=== PATIENT | female | born 1965 | race African-American/Black ===

== ENCOUNTER 2017-05-08 05:36 | Day surgery (SDC) | payer OTHER ==
[2017-05-08] VITALS (15 sets, daily range): BP systolic 110–150; BP diastolic 72–93
[~2017-05-08] VITALS: Ht 167.6 cm; Wt 94.3 kg
[2017-05-08] MEDS ORDERED: oxyCONTIN 20mg tab ORAL ONE (06:00)
[2017-05-08] MEDS ORDERED: Clindamycin 600mg/D5W 50ml Pre-Mix IV ONE (06:00)
[2017-05-08] MEDS ORDERED: celeBREX 200mg Cap **SURGERY PATIENTS ONLY ORAL ONE (06:00)
[2017-05-08] MEDS ORDERED: ZOLOFT25 MG ORAL (06:23)
[2017-05-08] MEDS ORDERED: METFORMIN HCL500 M4 ORAL (06:23)
[2017-05-08] MEDS ORDERED: ZOLOFT50 MG ORAL (06:23)
[2017-05-08] MEDS ORDERED: LATUDA80 MG PO (06:23)
[2017-05-08] MEDS ORDERED: OMEPRAZOLE20 M3 ORAL (06:23)
[2017-05-08] MEDS ORDERED: HYDROCHLOROTH12.5 M2 ORAL (06:23)
[2017-05-08] MEDS ORDERED: VENTOLIN HFA18 GM INH (06:55)
[2017-05-08] MEDS ORDERED: Bupivacaine w/Epi 0.25% 30ml Vial INJ ONE ×2 (07:09→07:45)
[2017-05-08] MEDS ORDERED: EPINEPHrine 1mg/1ml Amp ONE (07:10)
[2017-05-08] MEDS ORDERED: Bupivacaine 0.25% Inj 30ml INJ ONE (07:28)
[2017-05-08] MEDS ORDERED: Ropivacaine 5mg/ml Vial 20ml INJ ONE (07:28)
[2017-05-08] MEDS ORDERED: Clindamycin 6 ML ONE (07:28)
--- NOTE | 2017-05-08 07:58 | Pre-Procedure Note/Attestation ---
Pre-Procedure Note/Attestation Complete Prior to Procedure Planned Procedure: right Procedure Narrative: shoulder arthroscopy, removal of loose implant Indications for Procedure Pre-Operative Diagnosis: right rct, failed biceps tenodesis Attestation I attest that I discussed the nature of the procedure; its benefits; risks and complications; and alternatives (and the risks and benefits of such alternatives ), prior to the procedure, with the patient (or the patient's legal hr representative). I attest that, if there was a reasonable possibility of needing a blood transfusion, the patient (or the patient's legal hr representative) was given the [facility] standardized written summary, pursuant to the [place] Blood Safety Act ([place] Health and Safety Code # 1645, as amended). I attest that I re-evaluated the patient just prior to the surgery and that there has been no change in the patient's H&P, except as documented below: CLAUDINE LYNNE May 08, 2017 07:58
--- NOTE | 2017-05-08 07:59 | Operative Note - PDOC ---
Operative Note Operative Note Pre-op Diagnosis: right rct, failed biceps tenodesis Procedure: right arthroscopy, removal of loose screw Post-op Diagnosis: same as pre-op plus Operative Findings: consistent w/pre-op dx studies Anesthesia: general Specimen: none Complications: none Condition: stable Estimated Blood Loss: none Implant(s) used?: No CLAUDINE LYNNE May 08, 2017 07:59
[2017-05-08] MEDS ORDERED: Norco 5mg/325mg tab ORAL PRN (08:00)
[2017-05-08] MEDS ORDERED: HYDROmorphone 1mg/ml Carpuject SUBQ PRN (08:00)
[2017-05-08] MEDS ORDERED: Tylenol #3 tab (300mg/30mg) ORAL PRN (08:00)
[2017-05-08] MEDS ORDERED: Acetaminophen (Non formulary) 100 ML IV SCH (08:00)
--- NOTE | 2017-05-08 08:47 | Anethesia Preoperative Eval ---
Anesthesia Pre-op PMH/ROS General Date of Evaluation: May 08, 2017 Time of Evaluation: 07:30 Anesthesiologist: sheryl ASA Score: ASA 2 Mallampati Score Class I : Soft palate, uvula, fauces, pillars visible Class II: Soft palate, uvula, fauces visible Class III: Soft palate, base of uvula visible Class IV: Only hard plate visible Mallampati Classification: Class III Surgeon: modesto Diagnosis: right shoulder OA Anesthesia History: none Family History: no anesthesia problems Allergies: Coded Allergies: AMOXICILLIN (Verified Allergy, Severe, blisters, rash, swelling, 05/08/17) ERYTHROMYCIN BASE (Verified Allergy, Severe, swelling, rash, blisters, 05/08) PENICILLINS (Verified Allergy, Severe, swelling, rash, blister, 05/08/17) LATEX (Verified Allergy, Intermediate, itching, rash, 05/08/17) Medications: see eMAR Past Medical History Cardiovascular: Reports: HTN Pulmonary: Reports: asthma Gastrointestinal/Genitourinary: Denies: GERD, CRI, ESRD, other Neurologic/Psychiatric: Reports: depression/anxiety Endocrine: Reports: DM, steroids HEENT: Denies: cataract (L), cataract (R), glaucoma, HOOPA (L), HOOPA (R), other Hematology/Immune: Denies: anemia, DVT, bleeding disorder, other Musculoskeletal/Integumentary: Denies: OA, RA, DJD, DDD, edema, other Other: obesity PSxH Narrative: right shoulder surgery Anesthesia Pre-op Phys. Exam Physician Exam Last Vital Signs Date Time Temp Pulse Resp B/P (MAP) Pulse Ox O2 Delivery O2 Flow Rate FiO2 05/08/17 06:28 98.0 78 19 150/89 100 Room Air Constitutional: NAD Neurologic: CN 2-12 intact Cardiovascular: RRR Respiratory: CTA Gastrointestinal: S/NT/ND Airway Exam Mallampati Classification 3 Mallampati Score: Class III Neck: thick TMD: 1fb ROM: full Teeth: broken - lower Dentures: no upper, no lower Anesthesia Pre-op A/P Labs Urine Test Test 05/08/17 05:50 Urine HCG, Qualitative Negative Studies Pre-op Studies: EKG - sr Risk Assessment & Plan Assessment: asthmatic pt. lungs clear, albuterol prior to induction Plan: General with block; however, pt refuses a ISB prior to induction Status Change Before Surgery: No Pre-Antibiotics Drug: clindamycin Given Within 1 Hr of Incision: Yes Time Given: 08:50 HONORIO BARBA CRNA May 08, 2017 08:47
[2017-05-08] MEDS ORDERED: Propofol 200mg/20ml IV ONE (09:00)
[2017-05-08] MEDS ORDERED: Metoclopramide 10mg/2ml Inj ONE (09:00)
[2017-05-08] MEDS ORDERED: Zemuron 50mg/5ml Inj IV ONE (09:00)
[2017-05-08] MEDS ORDERED: Midazolam 2mg/2ml Inj ONE (09:00)
[2017-05-08] MEDS ORDERED: D5 1/2NS 1,000 ML IV SCH (09:00)
[2017-05-08] MEDS ORDERED: Dexamethasone 4mg/ml vial ONE (09:00)
[2017-05-08] MEDS ORDERED: LR 1000ml ONE (09:00)
[2017-05-08] MEDS ORDERED: Succinylcholine 20mg/ml 10ml vial ONE (09:00)
[2017-05-08] MEDS ORDERED: fentaNYL 100 mcg/2 mL IV ONE (09:00)
[2017-05-08] MEDS ORDERED: Morphine Sulfate 10mg/ml Inj ONE ×2 (09:00)
[2017-05-08] MEDS ORDERED: ePHEDrine 50mg/ml Inj ONE (09:00)
[2017-05-08] MEDS ORDERED: Lidocaine 1% MPF 10mg/ml 5ml ONE (09:00)
[2017-05-08] MEDS ORDERED: Metoclopramide 10mg/2ml Inj IVP PRN (09:45)
[2017-05-08] MEDS ORDERED: fentaNYL 100 mcg/2 mL IV PRN (09:45)
[2017-05-08] MEDS ORDERED: Meperidine 25mg/0.5ml Inj (FOR RIGORS ONLY) IV PRN (09:45)
[2017-05-08] MEDS ORDERED: Hydromorphone 0.5mg/0.5ml inj IVP PRN (09:45)
--- NOTE | 2017-05-08 10:51 | Immediate Post-Op Evaluation ---
Immediate Post-Op Evalulation Immediate Post-Op Evalulation Procedure: left shoulder arthroscopy Date of Evaluation: May 08, 2017 Time of Evaluation: 10:50 IV Fluids: 800 Blood Products: 0 Blood Pressure Systolic: 145 Blood Pressure Diastolic: 85 Pulse Rate: 89 Respiratory Rate: 14 O2 Sat by Pulse Oximetry: 97 Temperature (Fahrenheit): 97.6 Nausea: No Vomiting: No Complications none Patient Status: awake, reacts, patent Hydration Status: adequate Drug: cleocin Given Within 1 Hr of Incision: Yes Time Given: 08:50 HONORIO BARBA CRNA May 08, 2017 10:51
--- NOTE | 2017-05-08 12:51 | 48 Hour Post Anesthesia Eval ---
Post Anesthesia Evaluation Procedure: left shoulder arthroscopy Date of Evaluation: May 08, 2017 Time of Evaluation: 12:51 Blood Pressure Systolic: 130 0: 70 Pulse Rate: 73 Respiratory Rate: 14 O2 Sat by Pulse Oximetry: 99 Airway: patent Nausea: No Vomiting: No Hydration Status: adequate Cardiopulmonary Status: stable Mental Status/LOC: patient returned to baseline Follow-up Care/Observations: as per surgery Post-Anesthesia Complications: none Follow-up care needed: N/A HONORIO BARBA CRNA May 08, 2017 12:51
--- NOTE | 2017-05-08 13:46 | Diagnostic Imaging Report ---
Indication: Pain Findings: Fluoroscopic views of the right shoulder were obtained. Images demonstrate a needle directed toward the humeral head. Impression: Intraoperative imaging
--- NOTE | 2017-05-11 09:30 | Operative Note - Dictated ---
DATE OF OPERATION: 05/08/2017 PREOPERATIVE DIAGNOSES: 1. Failed right biceps tenodesis with loose hardware. 2. High-grade partial rotator cuff tear. 3. Impingement syndrome. POSTOPERATIVE DIAGNOSES: 1. Failed right biceps tenodesis with loose hardware. 2. High-grade partial rotator cuff tear. 3. Impingement syndrome. PROCEDURES: 1. Right shoulder diagnostic arthroscopy. 2. Right shoulder arthroscopic rotator cuff repair. 3. Open removal of Bio-Tenodesis screw. SURGEON: Montez George M.D. ANESTHESIA: Interscalene with general. INDICATION FOR THE PROCEDURE: The patient is a pleasant 52-year-old female who underwent a right shoulder arthroscopic biceps tenodesis. The patient subsequently had significant pain, difficult with all activities. Imaging studies showed that the screw was pulled out. She indicated to go for removal of the screw. At the same time, diagnostic arthroscopy of the shoulder will be performed to make sure there is no contributing intra-articular pathology causing her continued symptoms. Risks, limitations, expectations, and complications related to procedure discussed in detail including the need for future surgery, risk of anesthesia, medical complications, DVT, PE, and mortality risks. All questions were addressed. DESCRIPTION OF PROCEDURE: An informed consent was obtained. The patient was taken to the operating room and the patient placed under interscalene general anesthesia. The patient was then carefully placed in the beach-chair position. Right shoulder was prepped and draped in a sterile manner. An anterior x-ray of the shoulder was performed to make sure that we had adequate visualization of the hardware. At this point, the portal sites were marked and injected with 0.25% Marcaine with epinephrine. Inferolateral stab incision then made. Trocar was introduced into the shoulder joint. There was evidence of the previous biceps tenodesis. The superior labrum appeared to be intact. No significant chondral damage. There was a a partial articular-sided rotator cuff tear. The spinal needle was then placed through this area. The camera was then repositioned in the subacromial space and bursal side of where the rotator cuff tear was better visualized. It seemed like this was a pretty thin area of remnant tissue. It was felt that given the amount of pain that she has particularly with difficult with all activities that this may represent a high-grade partial rotator cuff tear. Therefore, attention first turned towards the removal of the biceps tenodesis screw. A separate anterior skin incision along the axillary fold was performed. Under fluoroscopic imaging, the incision was entered. The subcutaneous tissue and deltoid was incised longitudinal with fluoroscopic guidance, the screw was identified. Once the screw was identified, it was then removed. Once the screw was removed, the wound was copiously irrigated. At this point, the camera was reinserted into the glenohumeral joint. At this point, it was felt that given her symptomatology that formal fixation of the rotator cuff would be reasonable. Therefore, anchor was then placed just lateral to the articular margin. Two mattress sutures were then placed through the superior infraspinatus. Camera was then repositioned in the subacromial space and two knots were then tied. The camera was then repositioned into the glenohumeral joint and the footprint was recreated. At this point, the wound was copiously irrigated. Subcutaneous tissue approximated with 2-0 Vicryl suture, 3-0 Monocryl sutures. Steri-Strips and sterile dressing were applied. The patient was awoken and taken to recovery room with stable vital signs. ESTIMATED BLOOD LOSS: None. COMPLICATIONS: None. SPECIMENS: None. EXPLANTS: Include a loose biceps tenodesis screw. IMPLANTS: One [employer] JuggerKnot anchor. Montez George M.D. DR: PAMELA JOB#: [id number] CC: JONG
== END 2017-05-08 14:20 | disposition home or self-care (01) ==
LOC: SUR 05:36
DX: M75.101 Unspecified rotator cuff tear or rupture of right shoulder, not specified as traumatic (principal); E11.9 Type 2 diabetes mellitus without complications; Z79.84 Long term (current) use of oral hypoglycemic drugs; K21.9 Gastro-esophageal reflux disease without esophagitis; I10 Essential (primary) hypertension; E66.9 Obesity, unspecified; Z68.34 Body mass index [BMI] 34.0-34.9, adult; J45.909 Unspecified asthma, uncomplicated; M75.41 Impingement syndrome of right shoulder; Y83.8 Other surgical procedures as the cause of abnormal reaction of the patient, or of later complication, without mention of misadventure at the time of the procedure; Y79.2 Prosthetic and other implants, materials and accessory orthopedic devices associated with adverse incidents; Y92.019 Unspecified place in single-family (private) house as the place of occurrence of the external cause
CPT/HCPCS: 20680; 29827; 73020; 76001; 81025; J0171; J0330; J1100; J2250; J2270; J2405; J2704; J2765; J2795; J3010; J7120; S0077; 94003; 94150; C1713